=== PATIENT | female | born 1990 | race Caucasian/White ===

== ENCOUNTER 2018-11-30 04:33 | Emergency (ER) | payer MEDICAID ==
[~2018-11-30] VITALS: Ht 162.6 cm; Wt 81.6 kg
[2018-11-30 04:46] VITALS: BP 122/63
== END 2018-11-30 06:36 | disposition left against medical advice (07) ==
LOC: ER 04:38
DX: K08.89 Other specified disorders of teeth and supporting structures (principal); Z53.21 Procedure and treatment not carried out due to patient leaving prior to being seen by health care provider

== ENCOUNTER 2019-09-04 02:40 | Observation (INO) | payer MEDICAID ==
[~2019-09-04] VITALS: Ht 162.6 cm; Wt 79.4 kg
[2019-09-04] MEDS ORDERED: LACTATED RINGER'S 1,000 ML IV ONE (03:00)
[2019-09-04] MEDS ORDERED: LACTATED RINGER'S 1,000 ML IV SCH (03:00)
[2019-09-04 04:56] LABS: Urine Bacteria NONE SEEN /hpf (None Seen); Urine Blood Negative /uL (Negative); Urine Specific Gravity 1.005 (1.001-1.035); Urine WBC <1 /hpf (0 - 5)
[2019-09-04 05:12] LABS: Basophils # (auto) 0 10 ^3/uL (0-0.2); Basophils % (auto) 0.4 % (0.0-2.0); Eosinophils # (auto) 0.2 10 ^3/uL (0-0.8); Hemoglobin 7.4 g/dL (12.2-16.2); Lymphocytes # (auto) 2.7 10 ^3/uL (0.4-5.4); Mean Corpuscular Hemoglobin 19.8 pg (28.0-32.0); Nucleated Red Blood Cells % 0.1 %; Red Cell Distribution Width 18.8 % (11.8-14.3)
[2019-09-04 05:14] LABS: Eosinophils % (auto) 1.2 % (0.0-7.0); Hematocrit 23.7 % (36.0-46.0); Lymphocytes % (auto) 20.5 % (10.0-50.0); Mean Corpuscular Hgb Conc. 31.4 g/dL (32.0-36.0); Monocytes % (auto) 7.7 % (0.0-12.0); Neutrophils # (auto) 9.2 10 ^3/uL (1.6-8.6); Neutrophils % (auto) 70.2 % (37.0-80.0); Platelet Count (auto) 232 10^3/uL (140-450); Red Blood Cells 3.76 10^6/uL (4.0-5.20)
[2019-09-04 05:31] LABS: INR 0.99 (0.9-1.15); Partial Thromboplastin Time 26.8 sec (23.64-32.05)
[2019-09-04 05:37] LABS: Alcohol, Urine < 3.0 mg/dL (0-5); Amphetamine Screen, Urine NEGATIVE (NEGATIVE); Barbiturate Scree,Urine NEGATIVE (NEGATIVE); Benzodiazephine Screen, Urine NEGATIVE (NEGATIVE); Cannabinoid Screen, Urine NEGATIVE (NEGATIVE); Cocaine Screen, Urine NEGATIVE (NEGATIVE); Opiate Scree,Urine NEGATIVE (NEGATIVE); Phencyclidine Screen, Urine NEGATIVE (NEGATIVE)
[2019-09-04] MEDS ORDERED: ONDANSETRON HCL 4 MG/2 ML VIAL IV ONE (06:00)
[2019-09-04 06:11] LABS: Albumin 1.8 g/dL (3.4-5.0); BUN/Creatinine Ratio 7.7; Bilirubin, Total 0.4 mg/dL (0.2-1.0); Calcium 7.6 mg/dL (8.5-10.1); Potassium 3.7 mmol/L (3.5-5.1); Total Protein 5.9 g/dL (6.4-8.2)
[2019-09-04] MEDS ORDERED: ONDANSETRON HCL 4 MG/2 ML VIAL ONE (06:16)
[2019-09-04] MEDS ORDERED: LABETALOL HCL 200 MG TAB PO SCH (06:45)
[2019-09-04] MEDS ORDERED: hydrOXYzine HCL 25 MG/ML VL IM ONE (06:45)
[2019-09-04] MEDS ORDERED: hydrALAZINE HCL 20 MG/ML VL IV PRN ×2 (07:45)
[2019-09-04] MEDS ORDERED: NIFEdipine 10 MG CAP PO ONE (08:00)
== END 2019-09-04 11:00 | disposition home or self-care (01) | DRG 560 ==
LOC: LDRP 02:40
PROVIDERS: ADMIT Specialist; ATTEND Specialist
DX: O80 Encounter for full-term uncomplicated delivery (principal); Z37.0 Single live birth; Z3A.37 37 weeks gestation of pregnancy
CPT/HCPCS: 36415; 59025; 76805; 80053; 80307; 81001; 81002; 84550; 85025; 85362; 85379; 85610; 85730; 96372; 96374; G0378; J0360; J2405; J3410; 96361; 96366; 96375

== ENCOUNTER 2020-06-17 22:46 | Emergency (ER) | payer SELFPAY ==
[~2020-06-17] VITALS: Ht 157.5 cm; Wt 86.2 kg
[2020-06-18] MEDS ORDERED: SODIUM CHLORIDE 0.9% 1,000 ML IV ONE
[2020-06-18] MEDS ORDERED: LIDOCAINE 1% HCL (LOCAL ANESTH.) INJ 20ML MDV ONE (00:58)
[2020-06-18] MEDS ORDERED: PHENYLEPHRINE HCL 10 MG/ML VL ONE (00:58)
[2020-06-18] MEDS ORDERED: LIDOCAINE 1% HCL (LOCAL ANESTH.) INJ 20ML MDV ID ONE (01:15)
[2020-06-18] MEDS ORDERED: PHENYLEPHRINE HCL 10 MG/ML VL SUBCUT ONE (01:15)
[2020-06-18] MEDS ORDERED: HYDROmorphone HCL 2 MG/ML VL ONE (01:37)
[2020-06-18] MEDS ORDERED: HYDROmorphone HCL 2 MG/ML VL IV ONE ×2 (01:45)
[2020-06-18] MEDS ORDERED: ETOMIDATE (2MG/ML) 20ML VIAL IV ONE (01:45)
[2020-06-18] MEDS ORDERED: BACITRACIN TOP OINT 1 UD PKG TOP ONE ×4 (02:23→03:30)
[2020-06-18] MEDS ORDERED: cefTRIAXone 1GM/50ML D5W 50 ML IV ONE (02:45)
[2020-06-18] MEDS ORDERED: ONDANSETRON HCL 4 MG/2 ML VIAL ONE (04:29)
[2020-06-18] MEDS ORDERED: ONDANSETRON HCL 4 MG/2 ML VIAL IV ONE (04:30)
[2020-06-18 05:50] VITALS: BP 109/66
== END 2020-06-18 06:11 | disposition home or self-care (01) ==
LOC: ER 22:46
DX: S60.454A Superficial foreign body of right ring finger, initial encounter (principal); S60.414A Abrasion of right ring finger, initial encounter; W26.8XXA Contact with other sharp object(s), not elsewhere classified, initial encounter; Y93.89 Activity, other specified; Y92.89 Other specified places as the place of occurrence of the external cause; Y99.8 Other external cause status
CPT/HCPCS: 10120; 73140; 96361; 96365; 96375; 99152; 99153; 99285; J0696; J1170; J2001; J2370; J2405; J7030

== ENCOUNTER 2021-12-17 00:02 | Emergency (ER) | payer MEDICAID ==
[~2021-12-17] VITALS: Ht 162.6 cm; Wt 86.3 kg
[2021-12-17 00:50] VITALS: BP 108/78
== END 2021-12-17 06:00 | disposition left against medical advice (07) ==
LOC: ER 00:02
DX: T19.2XXA Foreign body in vulva and vagina, initial encounter (principal); Z53.21 Procedure and treatment not carried out due to patient leaving prior to being seen by health care provider; X58.XXXA Exposure to other specified factors, initial encounter; Y93.89 Activity, other specified; Y92.89 Other specified places as the place of occurrence of the external cause; Y99.8 Other external cause status

== ENCOUNTER 2023-03-30 18:52 | Emergency (ER) | payer MEDICAID ==
[~2023-03-30] VITALS: Ht 162.6 cm; Wt 81.8 kg
[2023-03-30 20:04] VITALS: BP 140/82; PULSE 92; RESP 16; TEMP 97.9; O2SAT 100
[2023-03-30] MEDS ORDERED: IBUP1TAB5 PO (20:44)
[2023-03-30] MEDS ORDERED: OFL50TS OT (20:44)
[2023-03-30] MEDS ORDERED: AUG875T PO (20:44)
[2023-03-30] MEDS ORDERED: HYDROcodone-ACET 5/325MG TAB PO ONE (20:45)
[2023-03-30] MEDS ORDERED: AMOXICILLIN/CLAVUL 875 MG TAB PO ONE (21:00)
[2023-03-30] MEDS ORDERED: KETOROLAC TROMETH 60MG/2ML VIAL IM ONE (21:00)
== END 2023-03-30 21:42 | disposition home or self-care (01) ==
LOC: ER 18:52
DX: T16.1XXA Foreign body in right ear, initial encounter (principal); H66.93 Otitis media, unspecified, bilateral; F17.210 Nicotine dependence, cigarettes, uncomplicated; Z91.030 Bee allergy status; X58.XXXA Exposure to other specified factors, initial encounter; Y93.89 Activity, other specified; Y92.89 Other specified places as the place of occurrence of the external cause; Y99.8 Other external cause status
CPT/HCPCS: 69200; 96372; 99284; J1885